=== PATIENT | female | born 1985 | race Caucasian/White ===

== ENCOUNTER → 2019-03-31 | Outpatient (CLI) | payer OTHER ==
--- NOTE | 2019-03-31 13:56 | US ---
EXAMINATION TYPE: US abdomen limited DATE OF EXAM: 03/31/2019 COMPARISON: NONE CLINICAL HISTORY: Abnormal liver function test R94.5,R68.89 Family hx of liver CA. Patient stated on Wellbutrin x 2 months. Patient denies abdominal pain. EXAM MEASUREMENTS: Liver Length: 17.7 cm Gallbladder Wall: 0.2 cm CBD: 0.5 cm Right Kidney: 12.8 x 6.2 x 4.4 cm Pancreas: wnl, tail obscured by overlying bowel gas Liver: hyperechoic appearance to right renal cortex suggests fatty liver; in left lobe oval, isoecho ic, solid mass noted =1.2 x 1.7 x 1.2cm; in right lobe another isoechoic, solid oval mass seen = 2.2 x 2.3 x 1.4cm Gallbladder: mobile gallstone noted =1.6 x 1.2 x 0.8cm Evidence for sonographic Little's sign: no CBD: wnl Right Kidney: No hydronephrosis or masses seen IMPRESSION: 1. There are 2 subtle isoechoic masses, one within the left hepatic lobe and one within the right hep atic lobe. Enhanced MRI of the liver is recommended for further evaluation. 2. Cholelithiasis without sonographic evidence of acute cholecystitis. 3. Findings most commonly related to hepatic steatosis.
== END | disposition home or self-care (01) ==
LOC: RADUSWWP 12:18
PROVIDERS: ATTEND Family Medicine
DX: K80.20 Calculus of gallbladder without cholecystitis without obstruction (principal); R16.0 Hepatomegaly, not elsewhere classified
CPT/HCPCS: 76705